=== PATIENT | male | born 1990 | race Caucasian/White ===

== ENCOUNTER 2023-04-12 14:42 | Emergency (ER) | payer OTHER, SELFPAY ==
[2023-04-12 14:49] VITALS: BP 147/84; PULSE 65; RESP 18; TEMP 36.6; O2SAT 98; BMI 30.2
--- NOTE | 2023-04-12 16:51 | ED_ITS ---
HPI - Male Genitourinary <Preet Jernigan PA-C - Last Filed: 04/12/23 16:56> General Chief complaint: Urogenital-Male Stated complaint: Genital Pain Time Seen by Provider: 04/12/23 15:20 Source: patient Mode of arrival: Ambulatory History of Present Illness HPI Narrative: 32-year-old male with no reported past medical history presents to the ED with 5-6 weeks of penile pain. Patient states that he experienced some trauma to the penis during sexual intercourse 6 weeks ago, following which he had significant bruising for a few days. However the bruising has resolved and patient states that he has pain when he sustained an erection. Patient is able to urinate normally. Patient has not been taking any ibuprofen or other [id number] in anti-inflammatories for the symptoms. Patient was seen by his PCP. He was referred to Urology by his PCP and is waiting to see Urology. Related Data Allergies Allergy/AdvReac Type Severity Reaction Status Date / Time No Known Drug Allergies Allergy Verified 04/12/23 14:48 Review of Systems <Preet Jernigan PA-C - Last Filed: 04/12/23 16:56> Constitutional Constitutional: Denies chills, Denies fatigue, Denies fever(s), Denies frequent falls, Denies lethargy and Denies weakness Eyes Eyes: Denies change in vision, Denies eye discharge, Denies irritation and Denies loss of vision ENT Ears, Nose, Mouth, and Throat: Denies change in voice, Denies dizziness, Denies neck pain, Denies sore throat and Denies throat swelling Cardiovascular Cardiovascular: Denies chest pain, Denies irregular heart rhythm, Denies lightheadedness, Denies palpitations, Denies dyspnea, Denies dyspnea on exertion and Denies orthopnea Respiratory Respiratory: Denies cough, Denies dyspnea, Denies dyspnea on exertion and Denies wheezing Gastrointestinal Gastrointestinal: Denies abdominal pain, Denies change in bowel habits, Denies diarrhea, Denies nausea and Denies vomiting Genitourinary Comments: Penile pain Musculoskeletal Musculoskeletal: Denies neck pain and Denies numbness Integumentary/Breasts Skin/Breast: Denies pruritus, Denies erythema, Denies rash and Denies wounds Neurologic Neurologic: Denies behavioral changes, Denies confusion, Denies dizziness, Denies frequent falls, Denies loss of vision, Denies numbness and Denies weakness Psychiatric Psychiatric: Denies anxiety, Denies behavioral changes, Denies confusion, Denies depression, Denies homicidal ideation and Denies suicidal ideation Endocrine Endocrine: Denies fatigue, Denies flushing and Denies palpitations Hematologic/Lymphatic Hematologic/Lymphatic: Denies easy bruising Allergic/Immunologic Allergic/Immunologic: Denies urticaria, Denies throat swelling and Denies wheezing Patient History <Preet Jernigan PA-C - Last Filed: 04/12/23 16:56> tobacco type: smokeless tobacco alcohol intake frequency: a few times a week Substance Use Type: does not use Exam <Preet Jernigan PA-C - Last Filed: 04/12/23 16:56> Narrative Exam Narrative: Const General:?cooperative, healthy appearing and comfortable HENMA Head:?normal to inspection Ears:?hearing grossly normal bilaterally Nose:?external nose normal Face and sinus:?normal facial exam and sinuses nontender Mouth:?oral mucosae normal Throat:?posterior oropharynx normal Eyes General:?appearance normal, both eyes and all related structures Neck Neck:?normal visual inspection and no lymphadenopathy noted Resp Effort & Inspection:?normal respiratory effort Auscultation:?clear to auscultation bilaterally Cardio Rate:?regular rate Rhythm:?regular rhythm Penis appears normal. No tenderness to palpation. No bruising. No rashes. Neuro General:?patient alert, patient awake and patient oriented x3 Initial Vital Signs Initial Vital Signs: Vital Signs Temperature 98 F 04/12/23 14:49 Pulse Rate 65 04/12/23 14:49 Respiratory Rate 18 04/12/23 14:49 Blood Pressure 147/84 H 04/12/23 14:49 Pulse Oximetry 98 04/12/23 14:49 Oxygen Delivery Method Room Air 04/12/23 14:49 <Asher Stockton MD - Last Filed: 04/12/23 18:09> Initial Vital Signs Initial Vital Signs: Vital Signs Temperature 98 F 04/12/23 14:49 Pulse Rate 65 04/12/23 14:49 Respiratory Rate 18 04/12/23 14:49 Blood Pressure 147/84 H 04/12/23 14:49 Pulse Oximetry 98 04/12/23 14:49 Oxygen Delivery Method Room Air 04/12/23 14:49 Course <Preet Jernigan PA-C - Last Filed: 04/12/23 16:56> Vital Signs Vital signs: Vital Signs - 8 hr 04/12/23 14:49 Temperature 98 F Pulse Rate 65 Respiratory Rate 18 Blood Pressure 147/84 H Pulse Oximetry 98 Oxygen Delivery Method Room Air <Asher Stockton MD - Last Filed: 04/12/23 18:09> Vital Signs Vital signs: Vital Signs - 8 hr 04/12/23 14:49 Temperature 98 F Pulse Rate 65 Respiratory Rate 18 Blood Pressure 147/84 H Pulse Oximetry 98 Oxygen Delivery Method Room Air MDM - Male Genitourinary <Preet Jernigan PA-C - Last Filed: 04/12/23 16:56> MDM Narrative Medical decision making narrative: 32-year-old male with no reported past medical history presents to the ED with 5-6 weeks of penile pain. History and physical exam are most consistent with a penile contusion. Low suspicion for penile fracture, given patient has had no urinary symptoms and injury happened 6 weeks ago. Recommend ibuprofen, follow- up with urology. ED return precautions discussed with patient. Patient verbalized understanding. Medical records reviewed: Yes Discharge Plan Departure Patient Disposition: Home Clinical Impression: Contusion of penis Qualifiers: Encounter type: initial encounter Qualified Code(s): S30.21XA - Contusion of penis, initial encounter Activity Restrictions/Additional Instructions: You were evaluated in the ED today for a penile injury. Your symptoms are most consistent with a penile contusion or bruise from the injury. Please take ibuprofen 800 mg by mouth every 8 hours with food. Please follow-up with the urologist as scheduled. Return to the ED if you have worsening symptoms, difficulty urinating. Referrals: ProviderFlorina [Primary Care Provider] - Stand Alone Forms: Patient Portal/API ED Sign-out <Asher Stockton MD - Last Filed: 04/12/23 18:09> Cosign ED Attending Ronak Attestation: I was immediately available in the department for consultation. Documentation has been reviewed. I agree with assessment and plan.
== END 2023-04-12 15:59 | disposition home or self-care (01) ==
PROVIDERS: Emergency Provider Student in an Organized Health Care Education/Training Program
DX: S30.21XA Contusion of penis, initial encounter (principal); X58.XXXA Exposure to other specified factors, initial encounter
CPT/HCPCS: 99281